=== PATIENT | male | born 2000 | race Caucasian/White ===

== ENCOUNTER 2024-10-23 21:12 | Emergency (ER) | payer MEDICAID ==
[~2024-10-23] VITALS: Ht 182.9 cm; Wt 63.5 kg
[2024-10-23] MEDS ORDERED: ONDANSETRON HCL/PF 4 MG/2 ML VIAL ONE (21:29)
[2024-10-23] MEDS: IV NS 0.9% 1,000 ML BAG IV ONE (21:39)
[2024-10-23] MEDS: ONDANSETRON HCL/PF 4 MG/2 ML VIAL IVP ONE (21:39)
[2024-10-23 22:00] VITALS: BP 135/87; TEMP 98.2; O2SAT 98
== END 2024-10-23 22:00 | disposition home or self-care (01) ==
LOC: ER 21:21
DX: F11.10 Opioid abuse, uncomplicated (principal); R11.0 Nausea
CPT/HCPCS: J2405